=== PATIENT | male | born 1970 | race Caucasian/White ===

== ENCOUNTER 2024-05-07 10:58 | Emergency (ER) | payer BC ==
[~2024-05-07] VITALS: Ht 180.3 cm; Wt 111.1 kg
[2024-05-07 11:05] VITALS: BP_SYST 127; PULSE 86; RESP 18; TEMP 98.3; O2SAT 96
[2024-05-07] MEDS ORDERED: RABIES VACCINE (PCEC)/PF 2.5 UNIT VIAL I.M. ONE (12:15)
[2024-05-07] MEDS ORDERED: AUG875 PO (12:24)
[2024-05-07] MEDS: DIPHTH,PERTUSS(ACELL),TET VAC 0.5 ML VIAL (Tdap) I.M. ONE (12:42)
== END 2024-05-07 12:43 | disposition home or self-care (01) ==
LOC: SED 10:58
DX: S61.251A Open bite of left index finger without damage to nail, initial encounter (principal); Z23 Encounter for immunization; Z79.2 Long term (current) use of antibiotics; W53.21XA Bitten by squirrel, initial encounter; Y93.89 Activity, other specified; Y92.89 Other specified places as the place of occurrence of the external cause; Y99.8 Other external cause status
CPT/HCPCS: 90715; 99283